=== PATIENT | male | born 1975 | race Two or more races ===

== ENCOUNTER 2018-07-08 13:43 | Emergency (ER) | payer OTHER ==
[2018-07-08 13:58] VITALS: BP 111/73; PULSE 84; RESP 16; TEMP 98.2
[2018-07-08] MEDS ORDERED: KETOROLAC 30 MG/ML 1 ML VIAL IM STA (14:29)
[2018-07-08] MEDS ORDERED: methylPREDNISolone SOD SUCCI 125 MG/2 ML VIAL IM ONE (14:29)
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
== END 2018-07-08 15:14 | disposition left against medical advice (07) ==
LOC: EC 13:43
DX: R20.2 Paresthesia of skin (principal); F17.200 Nicotine dependence, unspecified, uncomplicated
CPT/HCPCS: 99283; 96372 ×2; J2930; J1885